=== PATIENT | male | born 1980 | race Caucasian/White ===

== ENCOUNTER → 2022-03-14 08:28 | Outpatient (BNVA) | payer MEDICAID, SELFPAY | PROVIDERS: Visit Provider Podiatrist Foot & Ankle Surgery | DX: L60.0 Ingrowing nail (principal) | CPT/HCPCS: 99203 ==

== ENCOUNTER 2023-04-03 17:01 | Emergency (ER) | payer MEDICARE, MEDICAID, SELFPAY ==
[2023-04-03 17:13] VITALS: BP 129/87; PULSE 88; RESP 16; TEMP 36.6; O2SAT 99; BMI 31.4
--- NOTE | 2023-04-03 17:35 | W.ED.GENADLT ---
HPI - General Adult General: Chief complaint: General Medical Stated complaint: not feeling well Time Seen by Provider: 04/03/23 17:33 History of Present Illness: 42-year-old male patient comes in today with multiple complaints. Patient reports that he had had similar symptoms before and was started on alprazolam 0.5 mg which seemed to resolve the complaints. Patient recently moved back from [facility] and has yet to be able to find a provider that will represcribe his medication for him. Patient was recently tried on hydroxyzine with no improvement of symptoms. Patient takes multiple medications for heart rate control with metoprolol 200 mg, cyclobenzaprine as needed for muscle spasms, tramadol for chronic pain due to femur fracture of the left lower extremity. Review of Systems General: Reports: 10 or more systems reviewed and unremarkable except in HPI and below PFSH ED PFSH: Medical History Fracture, femur, distal Social History Smoking and tobacco/nicotine status: current every day tobacco/nicotine user Physical Exam Const: COMMON NORMALS: alert HENMT: COMMON NORMALS: normocephalic HEAD & SCALP: normocephalic Neck/C-Spine: COMMON NORMALS: full ROM Resp: COMMON NORMALS: normal respiratory effort and clear to auscultation bilaterally AUSCULTATION: clear to auscultation bilaterally Cardio: COMMON NORMALS: regular rate and regular rhythm RATE: regular rate RHYTHM: regular rhythm GI: COMMON NORMALS: non-tender Back/Pelvis: COMMON NORMALS: thoracic and lumbar spine normal to inspection Extremity: COMMON NORMALS: no pedal edema Neuro: SENSORIUM/ORIENTATION: Yes alert Skin: COMMON NORMALS: turgor normal GENERAL SKIN EXAM: turgor normal Course Vital Signs: Vital signs: Vital Signs Temperature 97.9 F 04/03/23 17:13 Pulse Rate 91 04/03/23 17:39 Respiratory Rate 21 H 04/03/23 17:39 Blood Pressure 154/113 04/03/23 17:39 Pulse Oximetry 100 04/03/23 17:39 Oxygen Delivery Me thod Room Air 04/03/23 17:39 MDM - General Adult Medical Decision Making 42-year-old male patient comes in today for not feeling right. Increased anxiety. Patient appears nontoxic. Patient is in a immobilizer for his left lower leg due to a femur fracture. Patient reports he has had multiple surgeries on the leg for repair to a accident from 4 years ago. Patient appears nontoxic. Respirations are even. Skin is warm and dry. Heart rates regular. Differential diagnosis includes but not limited to anxiety disorder, tachycardia, PTSD. EKG was normal sinus rhythm at rate of 88. No ST elevation or signs of ischemia is noted. Patient describes anxiety. Patient reports that when he was on his alprazolam he did not have any symptoms like this. This time patient may be having some withdrawals from his alprazolam use. We will go ahead and give patient some alprazolam 0.25 use twice daily as needed for anxiety breakthrough. Recommend follow-up with neurology for his concerns that he has had a TBI and these may be symptoms secondary to that, I also recommended follow-up with [facility] [place] as this may be more related to PTSD and a panic disorder. Patient reported understanding and agreed to plan. No radiology studies performed this visit Discharge Plan Discharge Patient Disposition: Home Clinical Impression: Panic disorder, History of traumatic brain injury Condition: Stable Prescriptions: New alprazolam 0.25 mg tablet 0.25 mg PO BID PRN (Reason: anxiety) Qty: 30 0RF No Action omeprazole 20 mg capsule,delayed release(DR/EC) 20 mg PO DAILY enalapril maleate 20 mg tablet 20 mg PO BID aspirin [Adult Aspirin Regimen] 81 mg tablet,delayed release (DR/EC) 81 mg PO DAILY tramadol 50 mg tablet 50 mg PO Q4H PRN (Reason: pain) Qty: 180 0RF ibuprofen 800 mg tablet 800 mg PO Q8H PRN (Reason: pain) Qty: 90 0RF Discharge Orders: Discharge ED (Routine); Ordered 04/03/23 Ordered By: Zana Serrano Discharge Diet: Usual diet Discharge Activity: Increase activity as tolerated Patient Instructions: Panic Disorder (ED) Activity Restrictions/Additional Instructions: Try to take alprazolam only if needed. Follow-up with primary care for further instructions. Case management will contact you for follow-up with neurology and behavioral health. Coding Level of Care Code ED Watch Repair Technician for Dania Rider
[2023-04-03 17:39] VITALS: BP 154/113; PULSE 91; RESP 21; O2SAT 100
--- NOTE | 2023-04-03 17:46 | ECG_ITS ---
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 Measurements Intervals [place] Rate: 83 P: 41 FL: 132 QRS: 18 QRSD: 86 T: 38 QT: 382 QTc: 451 Interpretive Statements SINUS RHYTHM No previous ECG available for comparison Electronically Signed On 04-03-2023 20:08:44 GASOLINE CATALYST OPERATOR by Bruce Hopkins M.D. [id number]
--- NOTE | 2023-04-04 11:20 | DCPLANNER ---
A message was sent to [facility] on 04/04/23 at 1120 am for a panic disorder. Clinic to contact patient for a follow up
--- NOTE | 2023-04-04 11:22 | DCPLANNER ---
A message was sent to neurology on 04/04/23 at [facility] for appt to check out TBI.
== END 2023-04-03 18:43 | disposition home or self-care (01) ==
PROVIDERS: Emergency Provider Nurse Practitioner Family
DX: F41.0 Panic disorder [episodic paroxysmal anxiety] (principal); Z87.820 Personal history of traumatic brain injury; Z79.82 Long term (current) use of aspirin; Z72.0 Tobacco use
CPT/HCPCS: 93005; 99283